=== PATIENT | female | born 1970 | race Caucasian/White ===

== ENCOUNTER 2016-06-01 12:28 | Inpatient (IN) | payer OTHER ==
[2016-06-01] MEDS ORDERED: ALBUTEROL INHALER 60 PUFF/8 GM INHALER INHALATION PRN (15:42)
[2016-06-01] MEDS ORDERED: IPRATROPIUM 0.5 MG/2.5 ML NEBU INHALATION PRN (15:42)
[2016-06-01] MEDS ORDERED: ALBUTEROL NEBULIZED 2.5 MG/3 ML INHALATION PRN (15:42)
[2016-06-01] MEDS ORDERED: DEXTROSE 5%-0.9% NACL 1,000 ML IV SCH (16:00)
[2016-06-01] MEDS: traMADol 50 MG TAB PO PRN (16:14)
[2016-06-01] MEDS: diphenhydrAMINE 50 MG CAP PO SCH ×2 (17:18→20:47)
[2016-06-01] MEDS: CYCLOBENZAPRINE 10 MG TAB PO SCH ×2 (17:18→20:42)
[2016-06-01] MEDS: methylPREDNISolone SOD SUCCI 40 MG/ML 1 ML VIAL IV SCH (17:32)
[2016-06-01] MEDS: DEXTROSE 5% IN WATER 1,000 ML IV SCH (17:32)
[2016-06-01] MEDS ORDERED: BUDESONIDE 0.5 MG/2 ML NEBU INHALATION SCH (20:00)
[2016-06-01] MEDS ORDERED: IPRATROPIUM-ALBUTEROL 3 ML NEB INHALATION PRN (20:30)
[2016-06-01] MEDS: NAPROXEN 250 MG TAB PO SCH (20:41)
[2016-06-01] MEDS: CLARITHROMYCIN 500 MG TAB PO SCH (20:42)
[2016-06-02] MEDS: methylPREDNISolone SOD SUCCI 40 MG/ML 1 ML VIAL IV SCH ×3 (00:05→15:39)
[2016-06-02] MEDS: DEXTROSE 5% IN WATER 1,000 ML IV SCH ×2 (05:03→17:40)
[2016-06-02] MEDS: IPRATROPIUM-ALBUTEROL 3 ML NEB INHALATION SCH ×4 (07:39→19:10)
[2016-06-02] MEDS: BUDESONIDE 0.5 MG/2 ML NEBU INHALATION SCH ×2 (07:39→19:10)
[2016-06-02] MEDS: CLARITHROMYCIN 500 MG TAB PO SCH ×2 (08:28→21:31)
[2016-06-02] MEDS: amLODIPine 10 MG TAB PO SCH (08:28)
[2016-06-02] MEDS: HYDROCHLOROTHIAZIDE 50 MG TAB PO SCH (08:29)
[2016-06-02] MEDS: diphenhydrAMINE 50 MG CAP PO SCH ×4 (08:29→21:31)
[2016-06-02] MEDS: MONTELUKAST 10 MG TAB PO SCH (08:30)
[2016-06-02] MEDS: NAPROXEN 250 MG TAB PO SCH ×2 (08:30→20:10)
[2016-06-02] MEDS: LISINOPRIL 20 MG TAB PO SCH (08:30)
[2016-06-02] MEDS: CYCLOBENZAPRINE 10 MG TAB PO SCH ×4 (08:32→21:38)
[2016-06-02] MEDS: traMADol 50 MG TAB PO PRN ×2 (08:39→21:31)
--- NOTE | 2016-06-02 14:10 | HP ---
DATE OF ADMISSION: CHIEF COMPLAINT: Difficulty breathing. HISTORY OF PRESENT ILLNESS: This is another admission for this 45-year-old white female who has a severe scoliosis and a long-standing history of asthma and COPD. She used to smoke. but has quit. She came to emergency room extremely tight and wheezy and could not be opened and was admitted. Pulse ox was in the low 80s. She has had no fever, chills, cough, hemoptysis, chest pain, sputum production, etc. REVIEW OF SYSTEMS: Otherwise unremarkable. Past medical history, family history and personal and social histories reveal that she is not allergic to any medications. She is on Qvar 80 two puffs twice a day, Singulair 10 mg, Ultram 50 q.6 p.r.n., Naprosyn 500 twice a day p.r.n., hydrochlorothiazide 50 mg once a day, Lotensin 40 once a day, Norvasc 10 mg once a day, updrafts with albuterol and ipratropium bromide. The remainder of her history is unremarkable except for her severe scoliosis. PHYSICAL EXAMINATION: Blood pressure 124/80 with a pulse of 88, respirations of 36, and she is afebrile. GENERAL: She appeared to be tight, wheezy and short of breath. Skin color is normal. Skin is warm and dry. Lymph nodes are not enlarged. Head, ears, eyes, nose, mouth, and throat were normal except for her strabismus. Neck veins not distended. Chest demonstrated her scoliosis and wheezing on inspiration and expiration with poor breath sounds. There are rales heard throughout. Cardiac exam demonstrated sinus tachycardia with no murmurs or extra sounds. ABDOMEN: Soft and there are no masses. Extremities are normal except for that related to her scoliosis. She is admitted to the hospital with diagnoses: 1. Status asthmaticus. 2. Chronic obstructive pulmonary disease. 3. Scoliosis. 4. Hypertension. PLAN: 1. Bed rest. 2. IV fluids. 3. Updrafts. 4. Antibiotics.
[2016-06-02 15:50] LABS: Glucose,Whole Blood 187 mg/dL (75-99)
[2016-06-03] MEDS: methylPREDNISolone SOD SUCCI 40 MG/ML 1 ML VIAL IV SCH ×2 (00:01→08:28)
[2016-06-03 07:18] LABS: Glucose,Whole Blood 171 mg/dL (75-99)
[2016-06-03 08:19] LABS: Hemoglobin A1C 5.2 % (4.2-6.1)
[2016-06-03] MEDS: DEXTROSE 5% IN WATER 1,000 ML IV SCH (08:21)
[2016-06-03] MEDS: CYCLOBENZAPRINE 10 MG TAB PO SCH ×3 (08:29→21:17)
[2016-06-03] MEDS: diphenhydrAMINE 50 MG CAP PO SCH ×4 (08:29→21:17)
[2016-06-03] MEDS: LISINOPRIL 20 MG TAB PO SCH (08:29)
[2016-06-03] MEDS: HYDROCHLOROTHIAZIDE 50 MG TAB PO SCH (08:30)
[2016-06-03] MEDS: amLODIPine 10 MG TAB PO SCH (08:30)
[2016-06-03] MEDS: CLARITHROMYCIN 500 MG TAB PO SCH ×2 (08:30→21:16)
[2016-06-03] MEDS: NAPROXEN 250 MG TAB PO SCH (08:30)
[2016-06-03] MEDS: MONTELUKAST 10 MG TAB PO SCH ×2 (08:30→21:16)
[2016-06-03] MEDS: INSULIN LISPRO (humaLOG) 300 UNIT/3 ML VIAL SQ SCH ×4 (08:54→21:17)
[2016-06-03] MEDS: IPRATROPIUM-ALBUTEROL 3 ML NEB INHALATION SCH ×4 (08:59→19:26)
[2016-06-03] MEDS: BUDESONIDE 0.5 MG/2 ML NEBU INHALATION SCH ×2 (08:59→19:27)
[2016-06-03 11:57] LABS: Glucose,Whole Blood 149 mg/dL (75-99)
[2016-06-03] MEDS ORDERED: ONDANSETRON 4 MG/2 ML VIAL IVP PRN (11:59)
[2016-06-03] MEDS ORDERED: FAMOTIDINE 20 MG TAB PO STA (12:00)
[2016-06-03] MEDS: SODIUM CHLORIDE 0.9% 1,000 ML IV SCH (13:09)
[2016-06-03] MEDS: traMADol 50 MG TAB PO PRN ×2 (13:14→19:19)
[2016-06-03] MEDS: MAG HYDROX/AL HYDROX/SIMETH 30 ML CUP PO SCH ×3 (15:04→22:10)
[2016-06-03 17:10] LABS: Glucose,Whole Blood 174 mg/dL (75-99)
[2016-06-03 20:13] LABS: Glucose,Whole Blood 141 mg/dL (75-99)
[2016-06-04] MEDS: SODIUM CHLORIDE 0.9% 1,000 ML IV SCH (03:36)
[2016-06-04 07:10] LABS: Glucose,Whole Blood 147 mg/dL (75-99)
[2016-06-04] MEDS: INSULIN LISPRO (humaLOG) 300 UNIT/3 ML VIAL SQ SCH ×4 (08:01→22:21)
[2016-06-04] MEDS: amLODIPine 10 MG TAB PO SCH (08:02)
[2016-06-04] MEDS: HYDROCHLOROTHIAZIDE 50 MG TAB PO SCH (08:02)
[2016-06-04] MEDS: CYCLOBENZAPRINE 10 MG TAB PO SCH ×3 (08:02→22:21)
[2016-06-04] MEDS: diphenhydrAMINE 50 MG CAP PO SCH ×4 (08:02→22:21)
[2016-06-04] MEDS: CLARITHROMYCIN 500 MG TAB PO SCH ×2 (08:02→22:20)
[2016-06-04] MEDS: BUDESONIDE 0.5 MG/2 ML NEBU INHALATION SCH ×2 (08:03→20:11)
[2016-06-04] MEDS: LISINOPRIL 20 MG TAB PO SCH (08:03)
[2016-06-04] MEDS: IPRATROPIUM-ALBUTEROL 3 ML NEB INHALATION SCH ×4 (08:03→20:11)
[2016-06-04] MEDS: MAG HYDROX/AL HYDROX/SIMETH 30 ML CUP PO SCH ×4 (08:04→22:25)
[2016-06-04 11:54] LABS: Glucose,Whole Blood 147 mg/dL (75-99)
--- NOTE | 2016-06-04 14:06 | PN ---
CHIEF COMPLAINT: Pneumonitis and reactive airway disease. HISTORY OF PRESENT ILLNESS: This lady IS still very wheezy and short of breath. Has had no fever or chills. She is doing a little better but quite dyspneic when she tries to ambulate. PHYSICAL EXAM: Breath sounds are decreased throughout. She has wheezes, rales, and rhonchi anteriorly and posteriorly in both sides and a prolonged expiratory phase. She has sinus tachycardia. IMPRESSION: 1. Reactive airway disease. 2. Bronchopneumonia. 3. Scoliosis. 4. Chronic obstructive pulmonary disease. PLAN: Continue with current program.
--- NOTE | 2016-06-04 14:12 | PN ---
DATE OF SERVICE: 06/03/2016 CHIEF COMPLAINT: Pneumonitis, COPD, reactive airway disease. HISTORY OF PRESENT ILLNESS: This lady is doing a little bit better, although she is having some nausea today and some vague discomfort in the epigastric area. She is on Naprosyn and she has asked the nurses not to bring it to her. PHYSICAL EXAMINATION: Chest still demonstrates wheezing bilaterally. The cardiac exam is unremarkable and the abdomen is soft. IMPRESSION: 1. Bronchopneumonia. 2. Chronic obstructive pulmonary disease. 3. Nausea. 4. Gastritis. PLAN: 1. Antacids. 2. Proton pump inhibitor. 3. Zofran for nausea and continue current program.
[2016-06-04] MEDS: traMADol 50 MG TAB PO PRN ×2 (14:36→22:25)
[2016-06-04] MEDS ORDERED: DIPHENOX-ATROP 2.5-0.025 MG 1 EACH TAB PO PRN (15:23)
[2016-06-04 17:16] LABS: Glucose,Whole Blood 150 mg/dL (75-99)
[2016-06-04 19:54] LABS: Glucose,Whole Blood 143 mg/dL (75-99)
[2016-06-04] MEDS ORDERED: FAMOTIDINE 20 MG TAB PO SCH (21:00)
[2016-06-04] MEDS: MONTELUKAST 10 MG TAB PO SCH (22:21)
[2016-06-05 07:11] LABS: Glucose,Whole Blood 89 mg/dL (75-99)
[2016-06-05] MEDS: BUDESONIDE 0.5 MG/2 ML NEBU INHALATION SCH (07:26)
[2016-06-05] MEDS: IPRATROPIUM-ALBUTEROL 3 ML NEB INHALATION SCH ×2 (07:26→11:15)
--- NOTE | 2016-06-05 07:34 | PN ---
CHIEF COMPLAINT: Pneumonitis. HISTORY OF PRESENT ILLNESS: This lady is still having trouble with nausea and vomiting and now she has developed diarrhea. She has had no fever or chills. PHYSICAL EXAMINATION: Her chest is slowly clearing. She has fair wheezes, rales or rhonchi. Cardiac exam is normal. Abdomen is soft, nontender. Bowel sounds are present. IMPRESSION: 1. Nausea and diarrhea, etiology unknown. 2. Pneumonitis. 3. Chronic obstructive pulmonary disease. 4. Reactive airway disease. PLAN: Zofran and Lomotil.
[2016-06-05 07:51] VITALS: BP 107/63; RESP 18; TEMP 97.9
[2016-06-05 08:31] LABS: ALT 63 U/L (9-52); AST 42 U/L (14-36); Alkaline Phosphatase 81 U/L (38-126); Anion Gap 9 mmol/L; Blood Urea Nitrogen 43 mg/dL (7-17); Calcium 8.4 mg/dL (8.4-10.2); Carbon Dioxide 31 mmol/L (22-30); Chloride 97 mmol/L (98-107); Glucose 95 mg/dL (74-99); Non-African American GFR(MDRD) 51 (>60 ml/min/1.73 sqM); Potassium 3.6 mmol/L (3.5-5.1); Sodium 137 mmol/L (137-145); Total Bilirubin 0.4 mg/dL (0.2-1.3); Total Protein 5.4 g/dL (6.3-8.2)
[2016-06-05] MEDS: INSULIN LISPRO (humaLOG) 300 UNIT/3 ML VIAL SQ SCH ×2 (08:54→12:56)
[2016-06-05] MEDS: CYCLOBENZAPRINE 10 MG TAB PO SCH (08:58)
[2016-06-05] MEDS: HYDROCHLOROTHIAZIDE 50 MG TAB PO SCH (08:58)
[2016-06-05] MEDS: MAG HYDROX/AL HYDROX/SIMETH 30 ML CUP PO SCH ×2 (08:58→12:57)
[2016-06-05] MEDS: amLODIPine 10 MG TAB PO SCH (08:58)
[2016-06-05] MEDS: CLARITHROMYCIN 500 MG TAB PO SCH (08:58)
[2016-06-05] MEDS: diphenhydrAMINE 50 MG CAP PO SCH ×2 (08:58→12:58)
[2016-06-05] MEDS: LISINOPRIL 20 MG TAB PO SCH (08:58)
[2016-06-05] MEDS: traMADol 50 MG TAB PO PRN (09:01)
[2016-06-05 11:21] LABS: Glucose,Whole Blood 128 mg/dL (75-99)
[2016-06-05 11:37] VITALS: PULSE 100
--- NOTE | 2016-06-05 12:27 | P.DS ---
Providers Date of admission: 06/01/16 13:00 Expected date of discharge: 06/05/16 Attending physician: Mateo Ladd Primary care physician: Mateo Ladd Hospital Course: 45-year-old female who presented on the day of admission to the emergency room with a chief complaint of feeling short of breath and audibly wheezing. Pulse ox in the emergency room was in the low 80s. There was no cough fever or chills. No hemoptysis. Patient was admitted to the services of the attending treated for acute exacerbation of COPD. Patient does have a past medical history for severe scoliosis. Additionally the patient reported the is experiencing nausea vomiting and developed diarrhea. The stool for C. diff was negative. Patient's diet was slowly advanced and on the day of discharge patient was able to tolerate a diet was felt to be appropriate to be discharged to home Impression discharge diagnosis Present on admission acute hypoxic respiratory insufficiency suspect due to exacerbation COPD with exacerbation of asthma Reactive airway disease History of nausea vomiting loose stools suspect viral gastroenteritis Hypertension History of asthma Acute onset shortness of breath suspect due to Tracheal bronchitis The above dictated assessment and findings were discussed with Dr. Ladd Impression and the plan of care have been dictated as directed. Joleen Jackson nurse practitioner acting as a scribe for Dr. Ladd Plan - Discharge Summary New Discharge Prescriptions: Clarithromycin [Biaxin] 500 mg PO Q12HR #14 tab methylPREDNISolone Dose Pack [Medrol Dose Pack] 4 mg PO DIRECTED #21 package Discharge Medication List Albuterol Inhaler [Ventolin Hfa Inhaler] 1 - 2 puff INHALATION RT-QID PRN [History] Albuterol Nebulized [Ventolin Nebulized] 2.5 mg INHALATION RT-QID PRN 03/29/15 [ History] Beclomethasone Dipropionate [Qvar 80 mcg/puff] 1 puff INHALATION RT-BID [History] Benazepril HCl 40 mg PO DAILY 03/29/15 [History] Cyclobenzaprine [Flexeril] 10 mg PO TID 03/29/15 [History] Ipratropium Nebulized [Atrovent Nebulized] 0.5 mg INHALATION RT-QID PRN [History] Montelukast [Singulair] 10 mg PO DAILY 03/29/15 [History] Naproxen 500 mg PO Q12HR 03/29/15 [History] amLODIPine [Norvasc] 10 mg PO DAILY 03/29/15 [History] diphenhydrAMINE [Benadryl] 50 mg PO QID 03/29/15 [History] traMADol HCl [Ultram] 50 mg PO QID PRN 03/29/15 [History] Flunisolide [Aerospan] 2 puff INHALATION RT-BID 06/01/16 [History] Hydrochlorothiazide [Hydrodiuril] 50 mg PO DAILY 06/01/16 [History] predniSONE See Taper PO DIRECTED 06/01/16 [History] Clarithromycin [Biaxin] 500 mg PO Q12HR tab 06/05/16 [Rx] Clarithromycin [Biaxin] 500 mg PO Q12HR #14 tab 06/05/16 [Rx] methylPREDNISolone Dose Pack [Medrol Dose Pack] 4 mg PO DIRECTED #21 package 06/05/16 [Rx] Follow up Appointment(s)/Referral(s): Mateo Ladd MD [Primary Care Provider] - 1 Week Discharge Disposition: HOME SELF-CARE
--- NOTE | 2016-06-05 22:41 | PN ---
CHIEF COMPLAINT: Reactive airway disease and pneumonitis with COPD. HISTORY OF PRESENT ILLNESS: This lady is doing quite well and can probably go home. PHYSICAL EXAM: Chest still demonstrates occasional wheezes and rales, but was otherwise clear. Cardiac is normal. The abdomen is soft. IMPRESSION: 1. Pneumonitis. 2. Exacerbation of reactive airway disease. 3. Chronic obstructive pulmonary disease. 4. Scoliosis. PLAN: ( ) today and this will be arranged by the nurse practitioner.
== END 2016-06-05 15:13 | disposition home or self-care (01) | DRG 190 ==
LOC: 5MS5E 13:00
PROVIDERS: ADMIT Family Medicine; ATTEND Family Medicine
DX: J44.0 Chronic obstructive pulmonary disease with (acute) lower respiratory infection (principal); J18.0 Bronchopneumonia, unspecified organism; J45.902 Unspecified asthma with status asthmaticus; M41.9 Scoliosis, unspecified; K29.70 Gastritis, unspecified, without bleeding; J44.1 Chronic obstructive pulmonary disease with (acute) exacerbation; A08.4 Viral intestinal infection, unspecified; R09.02 Hypoxemia; H50.9 Unspecified strabismus; R00.0 Tachycardia, unspecified; Z79.1 Long term (current) use of non-steroidal anti-inflammatories (NSAID); Z79.51 Long term (current) use of inhaled steroids; Z87.891 Personal history of nicotine dependence; Z79.899 Other long term (current) drug therapy
CPT/HCPCS: 80053; 80299; 83036; 87324; 94640